=== PATIENT | female | born 1970 | race Two or more races ===

== ENCOUNTER 2023-03-24 11:25 | Outpatient (CLI) | payer OTHER | END 2023-03-24 11:28 | disposition home or self-care (01) | LOC: NUCLEAR 11:25 | PROVIDERS: ATTEND Internal Medicine Sports Medicine | DX: C73 Malignant neoplasm of thyroid gland (principal); E89.0 Postprocedural hypothyroidism | CPT/HCPCS: 78015; A9528 ==